=== PATIENT | male | born 1950 ===

== ENCOUNTER 2018-02-13 18:30 | Observation (INO) | payer BC ==
[2018-02-13] MEDS ORDERED: NS 0.9% 1000 ML*IV.FLUID IV ONE (18:53)
[2018-02-13 19:10] LABS: ABS Basophils 0.1 10^3/ul (0-0.2); ABS Eosinophils 0 10^3/ul (0-0.6); ABS Monocytes 0.9 10^3/ul (0-0.8); ABS Neutrophils 10.4 10^3/ul (1.5-7.7); ABS Nucleated RBC 0 10^3/ul; Eosinophil % 0.3 % (0-6); Hematocrit 43 % (42-52); Hemoglobin 14.9 g/dl (14.0-18.0); Mean Corpuscular HGB Conc 35 g/dl (31-36); Mean Corpuscular Hemoglobin 29 pg (27-31); Mean Corpuscular Volume 83 fL (80-94); Mean Platelet Volume 7.8 um3 (7.4-10.4); Nucleated Red Blood Cells % 0; Platelet Count 173 10^3/ul (150-450); Red Blood Count 5.11 10^6/ul (4.00-5.40); Red Cell Distribution Width 13 % (10.5-15); White Blood Count 12.4 10^3/ul (3.5-10.8)
--- NOTE | 2018-02-13 19:18 | RAD ---
INDICATION: Fever COMPARISON: None TECHNIQUE: An AP portable view obtained at 1915 hours is submitted. FINDINGS: Bones/Soft Tissues: There are no acute bony findings. Cardiomediastinal: The cardiomediastinal silhouette is normal. Lungs: There are no infiltrates. Pleura: There are no pleural effusions. Other: None IMPRESSION: NORMAL CHEST
[2018-02-13] MEDS ORDERED: Acetaminophen TAB* 325 MG PO ONE (19:24)
[2018-02-13] MEDS ORDERED: Ketorolac INJ* 30 MG/ML 1 ML VIAL IV PUSH ONE (19:24)
[2018-02-13 19:27] LABS: EGFR Non-African American 38.7 (>60)
[2018-02-13 19:54] LABS: INR 1.02 (0.77-1.02)
[2018-02-13 20:08] LABS: Urine Appearance Clear; Urine Blood Negative (Negative); Urine Color Straw; Urine Ketones Negative (Negative); Urine Protein Negative (Negative); Urine Specific Gravity 1.009 (1.010-1.030); Urine Urobilinogen Negative (Negative)
[2018-02-13] MEDS ORDERED: Gentamicin ADULT (*) 180 MG in NS 0.9% 100 ML* 100 ML IVPB ONE (20:18)
[2018-02-13] MEDS ORDERED: cefTRIAXone(*) 2 GM in NS 0.9% 100 ML* 100 ML IVPB ONE (20:18)
[2018-02-13] MEDS ORDERED: NS 0.9% 100 ML* 0 ML ONE (20:38)
[2018-02-13] MEDS ORDERED: Ondansetron 40 MG VIAL* 2 MG/ML 20 ML VIAL IV PRN (20:40)
[2018-02-13] MEDS ORDERED: Propofol* 10 MG/ML 20 ML BTL IV PUSH ONE (21:28)
[2018-02-13] MEDS ORDERED: Midazolam* 1 MG/ML 5 ML VIAL (5 MG) ONE (21:28)
[2018-02-13] MEDS ORDERED: Lidocaine 2% PF * 5 ML VIAL ONE (21:28)
[2018-02-13] MEDS ORDERED: Dexamethasone IV* 4 MG/ML 1 ML (4 MG) ONE (21:28)
[2018-02-13] MEDS ORDERED: fentaNYL* 50 MCG/ML 2 ML VIAL (100 MCG VIAL) ONE (21:28)
[2018-02-13] MEDS ORDERED: Ondansetron ODT TAB* 4 MG ONE (21:28)
[2018-02-13] MEDS ORDERED: Acetaminophen TAB* 325 MG PO PRN (21:30)
[2018-02-13] MEDS ORDERED: Docusate CAP* 100 MG PO PRN (21:30)
[2018-02-13] MEDS ORDERED: oxyCODONE/Acetamin 5/325 MG* TAB PO PRN (21:30)
[2018-02-13] MEDS ORDERED: Iohexol 180 (CONTRAST) 10 ML SDV IV ONE (21:35)
[2018-02-13] MEDS ORDERED: EPHEDrine (Pressors)* 50 MG/ML VIAL ONE (22:12)
[2018-02-13] MEDS ORDERED: fentaNYL* 50 MCG/ML 2 ML VIAL (100 MCG VIAL) IV PRN (22:39)
[2018-02-13] MEDS ORDERED: Naloxone* 0.4 MG/ML 1 ML VIAL IV PRN (22:39)
[2018-02-13] MEDS ORDERED: Ondansetron INJ* 2 MG/ML VIAL IV PRN (22:39)
--- NOTE | 2018-02-14 00:11 | ED ---
Valdo Jones SooYoung, scribed for Kate Mcgrath MD on 02/13/18 at 1910 . Abdominal Pain/Male - HPI Summary HPI Summary: A 68 y/o M presents to the ED with c/o L flank pain due to known kidney stone onset yesterday afternoon. Pt states the pain radiates and rates it as 5 out of 10. Associated sx: fever, nausea, inability to urinate. Denies cough, SOB, CP. No known UTI. Pt saw his urologist, Dr. Damon, two days ago for a routine check-up. He experienced the onset of new pain yesterday afternoon and went to [facility], where he had a CAT scan, and was told his kidney stone was 6mm and moving. [place] gave him Toradol, Percocet. He last took the Toradol at 1100 yesterday, and has not taken the Percocet today. Pert PMHx: kidney stones (2012). Allergic to cephalexin. Last meal was two pieces of bread this AM. - History of Current Complaint Chief Complaint: EDFlankPain Stated Complaint: LT SIDE PAIN Time Seen by Provider: 02/13/18 19:05 Hx Obtained From: Patient Onset/Duration: Sudden Onset, Lasting Days - 2, Still Present Timing: Intermittent Severity Initially: Moderate Severity Currently: Moderate Pain Intensity: 5 Pain Scale Used: 0-10 Numeric Location: Flank - L Radiates: Yes Character: Other: - aching Associated Signs And Symptoms: Positive: Fever, Urinary Symptoms, Nausea. Negative: Cough, Chest Pain, Other - neg: SOB - Allergies/Home Medications Allergies/Adverse Reactions: Allergies Allergy/AdvReac Type Severity Reaction Status Date / Time cephalexin [From Keflex] Allergy Swelling Verified 02/13/18 18:39 Of Face,Lips,& Throat PMH/Surg Hx/FS Hx/Imm Hx Previously Healthy: No Endocrine/Hematology History: Denies: Hx Anticoagulant Therapy, Hx Diabetes, Hx Thyroid Disease, Hx Anemia , Hx Unexplained Bleeding Cardiovascular History: Reports: Hx Hypertension - "on occassion" Denies: Hx Aneurysm, Hx Angina, Hx Angioplasty, Hx Auto Implanted Cardiovert Defib, Hx Cardiac Arrest, Hx Cardiomegaly, Hx Congenital Heart Disease, Hx Congestive Heart Failure, Hx Coronary Artery Disease, Hx Deep Vein Thrombosis, Hx Embolism, Hx Hypercholesterolemia, Hx Hypotension, Hx Pacemaker/ICD, Hx Peripheral Vascular Disease, Hx Rheumatic Fever, Hx Syncope, Hx Valvular Heart Disease, Other Cardiovascular Problems/Disorders Respiratory History: Reports: Hx Seasonal Allergies - runny nose Denies: Hx Asthma, Hx Chronic Bronchitis, Hx Chronic Obstructive Pulmonary Disease (COPD), Hx Cystic Fibrosis, Hx Lung Cancer, Hx Pleural Effusion, Hx Pneumonia, Hx Pulmonary Edema, Hx Pulmonary Embolism, Hx Sleep Apnea, Other Respiratory Problems/Disorders GI History: Denies: Hx Cirrhosis, Hx Crohn's Disease, Hx Diverticulosis, Hx Gall Bladder Disease, Hx Gastroesophageal Reflux Disease, Hx Gastrointestinal Bleed, Hx Hiatal Hernia, Hx Irritable Bowel, Hx Jaundice, Hx Obstructive Bowel, Hx Ileostomy, Hx Pyloric Stenosis, Hx Ulcer, Other GI Disorders History: Reports: Hx Kidney Stones - still has one., Other Problems/ Disorders - HX KIDNEY STONES Denies: Hx Acute Renal Failure, Hx Benign Prostatic Hyperplasia, Hx Chronic Renal Failure, Hx Dialysis, Hx Kidney Infection, Hx Renal Disease Musculoskeletal History: Denies: Hx Arthritis, Hx Back Problems, Hx Bursitis, Hx Congenital Bone Abnormalities, Hx Fibromyalgia, Hx Gout, Hx Orthopedic Injury, Hx Osteoporosis, Hx Scoliosis, Hx Tendonitis, Other Musculoskeletal History Sensory History: Reports: Hx Contacts or Glasses Denies: Hx Cataracts, Hx Eye Injury, Hx Eye Prosthesis, Hx Glaucoma, Hx Legally Blind, Hx Macular Degeneration, Hx Vision Problem, Hx Deafness, Hx Hearing Aid, Hx Hearing Problem, Other Sensory Impairments Opthamlomology History: Reports: Hx Contacts or Glasses Denies: Hx Cataracts, Hx Eye Injury, Hx Eye Prosthesis, Hx Glaucoma, Hx Legally Blind, Hx Macular Degeneration, Hx Vision Problem, Other Sensory Impairments Neurological History: Reports: Hx Migraine - visual. Not on a regular basis Denies: Hx Dementia, Hx Seizures Psychiatric History: Reports: Hx Anxiety - in 2001 Denies: Hx Attention Deficit Hyperactivity Disorder, Hx Eating Disorder, Hx Depression, Hx Panic Disorder, Hx Post Traumatic Stress Disorder, Hx Inpatient Treatment, Hx Community Mental Health Tx, Hx Schizophrenia, Hx Bipolar Disorder , Hx Suicide Attempt, Hx of Violent Episodes Against Others, Hx Substance Abuse , Other Psychiatric Issues/Disorders - Surgical History Surgery Procedure, Year, and Place: RIGHT HAND SURGERY. LEFT KIDNEY STONE EXTRACTION - Immunization History Date of Tetanus Vaccine: unknown Infectious Disease History: No Infectious Disease History: Denies: Hx Hepatitis, Hx Human Immunodeficiency Virus (HIV), Hx Tuberculosis , Traveled Outside the [place] in Last 30 Days - Family History Known Family History: Positive: Other - mother - PE; father - Parkinson's, Alz - Social History Occupation: Unemployed - OTHER Lives: With Family Alcohol Use: None Substance Use Type: Reports: None Smoking Status (MU): Former Smoker Review of Systems Positive: Fever Negative: Chest Pain Negative: Shortness Of Breath, Cough Positive: Nausea Positive: dysuria - inability to urinate, flank pain - L All Other Systems Reviewed And Are Negative: Yes Physical Exam - Summary Physical Exam Summary: GENERAL: Patient is a well-developed and nourished M who is lying comfortable in the stretcher. Patient is not in any acute respiratory distress. HEAD AND FACE: Normocephalic EYES: PERRLA, EOMI x 2. EARS: Hearing grossly intact. MOUTH: Oropharynx within normal limits. NECK: Supple, trachea is midline, no adenopathy, no JVD, no carotid bruit. CHEST: Symmetric, no tenderness at palpation LUNGS: Clear to auscultation bilaterally. No wheezing or crackles. CVS: Regular rate and rhythm, S1 and S2 present, no murmurs or gallops appreciated. ABDOMEN: Soft. Bowel sounds are normal. No abdominal abnormal pulsations. Mild L -sided CVA tenderness. EXTREMITIES: Full ROM in all major joints, no edema, no cyanosis or clubbing. NEURO: Alert and oriented x 3. No acute neurological deficits. Speech is normal and follows commands. SKIN: Dry and warm Triage Information Reviewed: Yes Vital Signs On Initial Exam: Initial Vitals Temp Pulse Resp BP Pulse Ox 102.4 F 106 20 140/84 100 02/13/18 18:33 02/13/18 18:33 02/13/18 18:33 02/13/18 18:33 02/13/18 18:33 Vital Signs Reviewed: Yes Diagnostics - Vital Signs Vital Signs Temp Pulse Resp BP Pulse Ox 02/13/18 18:33 102.4 F 106 20 140/84 100 - Laboratory Lab Results: Lab Results 02/13/18 02/13/18 02/13/18 Range/Units 19:01 19:01 19:01 WBC 12.4 H (3.5-10.8) 10^3/ul RBC 5.11 (4.00-5.40) 10^6/ul Hgb 14.9 (14.0-18.0) g/dl Hct 43 (42-52) % MCV 83 (80-94) fL MCH 29 (27-31) pg MCHC 35 (31-36) g/dl RDW 13 (10.5-15) % Plt Count 173 (150-450) 10^3/ul MPV 7.8 (7.4-10.4) um3 Neut % (Auto) 83.7 H (38-83) % Lymph % (Auto) 8.0 L (25-47) % [place] % (Auto) 7.6 H (0-7) % Eos % (Auto) 0.3 (0-6) % Baso % (Auto) 0.4 (0-2) % Absolute Neuts (auto) 10.4 H (1.5-7.7) 10^3/ul Absolute Lymphs (auto) 1.0 (1.0-4.8) 10^3/ul Absolute Monos (auto) 0.9 H (0-0.8) 10^3/ul Absolute Eos (auto) 0 (0-0.6) 10^3/ul Absolute Basos (auto) 0.1 (0-0.2) 10^3/ul Absolute Nucleated RBC 0 10^3/ul Nucleated RBC % 0 INR (Anticoag Therapy) 1.02 (0.77-1.02) APTT 28.8 (26.0-36.3) seconds Sodium 136 (135-145) mmol/L Potassium 4.1 (3.5-5.0) mmol/L Chloride 102 (101-111) mmol/L Carbon Dioxide 23 (22-32) mmol/L Anion Gap 11 (2-11) mmol/L BUN 23 (6-24) mg/dL Creatinine 1.77 H (0.67-1.17) mg/dL Est GFR ( Amer) 46.8 (>60) Est GFR (Non-Af Amer) 38.7 (>60) BUN/Creatinine Ratio 13.0 (8-20) Glucose 108 H (70-100) mg/dL Lactic Acid (0.5-2.0) mmol/L Calcium 9.2 (8.6-10.3) mg/dL Total Bilirubin 1.20 H (0.2-1.0) mg/dL AST 19 (13-39) U/L ALT 18 (7-52) U/L Alkaline Phosphatase 61 (34-104) U/L Troponin I 0.00 (<0.04) ng/mL C-Reactive Protein 44.07 H (<8.01) mg/L B-Natriuretic Peptide ( - 100) pg/mL Total Protein 6.4 (6.4-8.9) g/dL Albumin 4.3 (3.2-5.2) g/dL Globulin 2.1 (2-4) g/dL Albumin/Globulin Ratio 2.0 (1-3) Lipase 100 H (11.0-82.0) U/L Urine Color Urine Appearance Urine pH (5-9) Ur Specific [place] (1.010-1.030) Urine Protein (Negative) Urine Ketones (Negative) Urine Blood (Negative) Urine Nitrate (Negative) Urine Bilirubin (Negative) Urine Urobilinogen (Negative) Ur Leukocyte Esterase (Negative) Urine Glucose (Negative) 02/13/18 02/13/18 02/13/18 Range/Units 19:01 19:01 19:50 WBC (3.5-10.8) 10^3/ul RBC (4.00-5.40) 10^6/ul Hgb (14.0-18.0) g/dl Hct (42-52) % MCV (80-94) fL MCH (27-31) pg MCHC (31-36) g/dl RDW (10.5-15) % Plt Count (150-450) 10^3/ul MPV (7.4-10.4) um3 Neut % (Auto) (38-83) % Lymph % (Auto) (25-47) % [place] % (Auto) (0-7) % Eos % (Auto) (0-6) % Baso % (Auto) (0-2) % Absolute Neuts (auto) (1.5-7.7) 10^3/ul Absolute Lymphs (auto) (1.0-4.8) 10^3/ul Absolute Monos (auto) (0-0.8) 10^3/ul Absolute Eos (auto) (0-0.6) 10^3/ul Absolute Basos (auto) (0-0.2) 10^3/ul Absolute Nucleated RBC 10^3/ul Nucleated RBC % INR (Anticoag Therapy) (0.77-1.02) APTT (26.0-36.3) seconds Sodium (135-145) mmol/L Potassium (3.5-5.0) mmol/L Chloride (101-111) mmol/L Carbon Dioxide (22-32) mmol/L Anion Gap (2-11) mmol/L BUN (6-24) mg/dL Creatinine (0.67-1.17) mg/dL Est GFR ( Amer) (>60) Est GFR (Non-Af Amer) (>60) BUN/Creatinine Ratio (8-20) Glucose (70-100) mg/dL Lactic Acid 1.3 (0.5-2.0) mmol/L Calcium (8.6-10.3) mg/dL Total Bilirubin (0.2-1.0) mg/dL AST (13-39) U/L ALT (7-52) U/L Alkaline Phosphatase (34-104) U/L Troponin I (<0.04) ng/mL C-Reactive Protein (<8.01) mg/L B-Natriuretic Peptide 35 ( - 100) pg/mL Total Protein (6.4-8.9) g/dL Albumin (3.2-5.2) g/dL Globulin (2-4) g/dL Albumin/Globulin Ratio (1-3) Lipase (11.0-82.0) U/L Urine Color Straw Urine Appearance Clear Urine pH 5.0 (5-9) Ur Specific [place] 1.009 L (1.010-1.030) Urine Protein Negative (Negative) Urine Ketones Negative (Negative) Urine Blood Negative (Negative) Urine Nitrate Negative (Negative) Urine Bilirubin Negative (Negative) Urine Urobilinogen Negative (Negative) Ur Leukocyte Esterase Negative (Negative) Urine Glucose Negative (Negative) Result Diagrams: 02/13/18 19:01 02/13/18 19:01 Lab Statement: Any lab studies that have been ordered have been reviewed, and results considered in the medical decision making process. - Radiology CXR Xray Interpretation: No Acute Changes - IMPRESSION: Nml chest XR. ED physician has reviewed this report and agrees. Radiology Interpretation Completed By: Radiologist - EKG 1940 Cardiac Rate: Tachycardia - 132 bpm EKG Rhythm: Sinus Tachycardia EKG Interpretation: Q waves in inferior leads - Additional Comments Diagnostic Additional Comments: A/P CT from [facility] on 02/12/2018, read by Dr. Collier: Impression: "6mm calculus positioned in the L ureteral pelvic junction/proximal ureter with moderate hydronephrosis and some periureteral edema changes. This stone was previously seen in the lower pole the left kidney. No other calculi identified. Distal ureter normal in caliber. The other abd viscera are unremarkable." Re-Evaluation - Re-Evaluation 1 Re-Evaluation Time: 19:44 Change: Unchanged Comment: Discussing review of [place] [facility] with pt. Pt wants to contact Dr. Damon. 2 Re-Evaluation Time: 19:53 Change: Unchanged Comment: Discussing consult with Dr. Ybarra. Pt voiced understanding. 3 Re-Evaluation Time: 20:35 Change: Improved Comment: Discussing plans with pt for Dr. Ybarra to take him to OR. Pt voiced understanding. Abdominal Pain Fem Course/Dx - Course Course Of Treatment: A 68 y/o M who has dx: kidney stone and now presents with fever, concerns for infected stone. Received [facility] CT scan which confirmed an obstructing stone on L side. Pt started on sepsis pathway and given 30 ccs nml saline, 30mg Toradol, and covered broadly with IV Abx: Ceftriaxone and Gentamicin. Pt did call his urologist and I spoke to Dr. Ybarra, who will take pt to OR for stent. Discussed case with Dr. Osborne, hospitalist, who will admit pt. Pt is hemodynamically stable, and agrees to admission. Discussed results and plan of care with pt, who voiced understanding. - Diagnoses Differential Diagnosis/HQI/PQRI: Renal Colic Provider Diagnoses: Kidney stone - Provider Notifications Discussed Care Of Patient With: Von Ybarra - Urology Time Discussed With Above Provider: 19:51 Instructed by Provider To: Other - Recommends rechecking temperature after medication - Critical Care Time Critical Care Time: 30-74 min Discharge - Sign-Out/Discharge Documenting (check all that apply): Discharge/Admit/Transfer - admit - Discharge Plan Condition: Stable Disposition: ADMITTED TO [facility] - Billing Disposition and Condition Condition: STABLE Disposition: Admitted to [facility] Consult Consult: Consult with Dr. Ybarra, urology, at 2015: Reviewing vitals. Recommends admit, but will call hospitalist to see if he needs to come in tonight or tomorrow. Consult with Dr. Osborne, hospitalist, at 2019: Discussing Dr. Ybarra's recommendation to admit. Will accept pt. Consult with Dr. Ybarra, at 2033: Will come in tonight and take pt to OR. Consult with Dr. Osborne, at 2033: Confirmed plans. The documentation as recorded by the Valdo kirk SooYoung accurately reflects the service I personally performed and the decisions made by , Kate Mcgrath MD.
--- NOTE | 2018-02-14 01:05 | HP ---
CC: Dr. Ritchie; Dr. Ybarra * ADMISSION HISTORY AND PHYSICAL: DATE OF ADMISSION: 02/13/18 CHIEF COMPLAINT: Flank pain. HISTORY OF PRESENT ILLNESS: Mr. Almeida is a 68-year-old man who is in good health but has history of nephrolithiasis. He came to the emergency department of [facility] this evening complaining of lower abdominal pain and flank pain that is worsening since yesterday. The patient was at [facility] on 02/12/18 with groin pain and flank pain. At that point, he had a CT that showed a 6 mm stone in the left ureteropelvic junction. He was discharged home on Vicodin for pain and advised to stay hydrated, but he felt he could not manage the pain at home and came to the emergency room tonight. The patient has no history of heart disease. He does heavy exercises without any chest pain, but he does experience some shortness of breath when he is climbing hills or stairs but does not really limit him. Denies any history of ME. The patient's medical history mainly for nephrolithiasis. He also has borderline hypertension with blood pressures in the 140s/80 range. The patient had another renal stone extracted in [address] Damon and he saw Dr. Damon 2 days ago for routine visit, which included an ultrasound that showed a left kidney stone that was not in UPJ at that point according to what the patient understood. PAST SURGICAL HISTORY: Right hand surgery in the past and left kidney stone extraction. MEDICATIONS: On admission is Vicodin p.r.n. ALLERGIES: Possibly to KEFLEX. FAMILY HISTORY: Notable for mother at age 89 of pulmonary embolism. Father at 79 of Alzheimer's. SOCIAL HISTORY: He is retired from [employer]. He never smoked. Drinks no alcohol. No recreational drugs. He is . He has no children. REVIEW OF SYSTEMS: The patient had a fever at home, but he did not measure it and he had some anorexia. The patient denies any chest pain or palpitations. The patient denies any shortness of breath or cough. The patient has had no diarrhea, but he has had some nausea and abdominal pain. He has had no bowel movement since . Yesterday he has had nausea since using Vicodin. The patient denies any hematuria or dysuria. Remainder of a 14-point review of systems was negative other than mentioned in the HPI. PHYSICAL EXAMINATION GENERAL: He is alert, in no acute distress. VITAL SIGNS: Temperature is 38.2, up to 39.1; the pulse is 89; respirations 19 ; blood pressure is 138/96; O2 sat is 94%. HEENT: Head is normocephalic, atraumatic. Sclerae anicteric. Pupils equally round, reactive to light and accommodation. Oropharynx is moist. No lesions. NECK: No JVD, no carotid bruits, no thyromegaly. LUNGS: Clear to auscultation and percussion bilaterally. HEART: Regular rate and rhythm without murmurs or gallops. ABDOMEN: Soft. There is some mild tenderness in the suprapubic region. Positive bowel sounds. There is left CVA tenderness. No masses are palpated. EXTREMITIES: No peripheral edema. Dorsalis pedis pulses 2+ bilaterally. NEUROLOGIC: Cranial nerves II through XII are intact. Motor strength is 5/5 throughout. Deep tendon reflexes are symmetric. DIAGNOSTIC STUDIES/LAB DATA: Sodium 136, potassium 4.1, chloride 102, bicarb 23, BUN 23, creatinine 1.77, glucose 108. Troponin 0.00. Lactic acid 1.3. Lipase 100. CRP 44.0. BNP 35. White count is 12.4, hemoglobin 14.9, hematocrit 43%, platelets are 173. INR of 1.02, PTT 28.8. EKG shows sinus tachycardia, left axis deviation, and inferior Q waves that are new compared with an EKG of 02/21/13. Chest x-ray is negative. ASSESSMENT AND PLAN: 1. Infected renal stone with sepsis, organism likely Escherichia coli or klebsiella. The patient has received a dose of gentamicin and ceftriaxone in the emergency room. We need to obtain SIRS control of this infection by consultation with Urology and taking him to the operating room for placement of stent and possible extraction of the stone to allow drainage of the infection from the left ureter. 2. The patient also has acute kidney disease with creatinine above baseline, likely only has one kidney, the right kidney functioning, infiltrated at this time. This should improve with the clearance of obstruction. He will be hydrated with crystalloids. He has already had his 30 mL/kg infusion in the ER. Continue the lactated Ringers while he is upstairs. Recheck in the morning. The patient has new Q waves in the EKG. No symptoms of coronary artery disease at this time. The patient should proceed to the operating room without delay given the risk of delay, worsening sepsis, and the low risk of cardiopulmonary complications from this procedure. 2. Code status is full. 3. DVT prophylaxis: He is at high risk given his family history and his age; he should have compression devices now and Lovenox 24 hours after surgery. [id number]/[facility] #: [id number] MISHA
--- NOTE | 2018-02-14 01:13 | OP ---
CC: Dr. Mike Ritchie * DATE OF OPERATION: 02/13/18 - ROOM #341 DATE OF : 54 SURGEON: Dr. Von Ybarra. ANESTHESIOLOGIST: Dr. Salazar. ANESTHESIA: General. PRE-OP DIAGNOSES: 1. Obstructing calculus, left proximal ureter. 2. Urosepsis. POST-OP DIAGNOSIS: 1. Obstructing calculus, left proximal ureter. 2. Urosepsis. OPERATIVE PROCEDURE: Cystoscopy, left retrograde pyelogram, left ureteral calculus manipulation, and left stent insertion. COMPLICATIONS: None. STENT USED: 6-[place] stent, left ureter. POSTOPERATIVE CONDITION: Stable. INDICATIONS: Randal Almeida is a 68-year-old gentleman who had previously been at [facility]. A CT scan had revealed a 6 mm calculus in the proximal left ureter. He was being managed conservatively, but presented to the emergency room with temperature of 39.1 and was noted to be tachycardic and is being brought in for urgent left stent insertion. Because of the presence of infection, I am not planning to remove or break up the calculus at the present time, but to place a stent and then to bring him back as an outpatient a week or so later for lithotripsy. OPERATIVE FINDINGS: 1. Mildly enlarged (predominantly medial lobe) prostate. 2. Obstructing calculus, left proximal ureter. DESCRIPTION OF PROCEDURE: After induction of general anesthesia, the patient was placed in dorsal lithotomy position. Sequential compression devices were in place and functioning. Initial cystoscopy revealed a normal-appearing urethra. There was mild enlargement of the median lobe of the prostate with some increased vascularity noted on the surface of the median lobe. The bladder was examined and was unremarkable. A guidewire was introduced into the left ureter. Retrograde pyelogram was carried out in a limited fashion because of the possible infection and revealed mild fullness of the left collecting system. The calculus could be visualized in the proximal ureter and was carefully manipulated more proximally to facilitate placement of the stent. A 6 -[place] stent was then introduced and positioned under fluoroscopy with good proximal and distal positioning obtained. The proximal coil was slightly uncoiled at the end of the procedure, but appeared to be draining adequately. The patient tolerated the procedure satisfactorily and was transferred back to the recovery area in stable condition. The plan is to bring him back some time in the next 7 to 10 days for lithotripsy. [id number]/[facility] #: [id number] [facility]OSPITALJohn
[2018-02-14 06:13] LABS: ABS Basophils 0 10^3/ul (0-0.2); ABS Eosinophils 0 10^3/ul (0-0.6); ABS Lymphocytes 0.7 10^3/ul (1.0-4.8); ABS Monocytes 0.2 10^3/ul (0-0.8); ABS Neutrophils 7.5 10^3/ul (1.5-7.7); ABS Nucleated RBC 0 10^3/ul; Eosinophil % 0 % (0-6); Hematocrit 41 % (42-52); Lymphocyte % 8.6 % (25-47); Mean Corpuscular HGB Conc 34 g/dl (31-36); Mean Corpuscular Hemoglobin 29 pg (27-31); Mean Corpuscular Volume 85 fL (80-94); Mean Platelet Volume 8.3 um3 (7.4-10.4); Nucleated Red Blood Cells % 0; Platelet Count 158 10^3/ul (150-450); Red Blood Count 4.81 10^6/ul (4.00-5.40); Red Cell Distribution Width 14 % (10.5-15); White Blood Count 8.4 10^3/ul (3.5-10.8)
[2018-02-14 06:25] LABS: EGFR Non-African American 57.8 (>60)
--- NOTE | 2018-02-14 06:50 | RAD ---
INDICATION: Left renal stent placement COMPARISON: None FINDINGS: 17 seconds of fluoroscopy were provided for the urology department. Fluoroscopic spot imaging of the abdomen were obtained for operative control and show left ureteral stent placement . There is mild uncoiling of the proximal aspect of the stent. The distal aspect projects over the bladder CPT II Codes: G9500 (fluoro time doc)
[2018-02-14] MEDS ORDERED: Tamsulosin CAP* 0.4 MG PO SCH (09:00)
[2018-02-14] MEDS ORDERED: Magnesium CITRATE* 300 ML BTL PO ONE (09:00)
[2018-02-14] MEDS ORDERED: Gentamicin ADULT (*) 160 MG in NS 0.9% 100 ML* 100 ML IVPB ONE (10:00)
[2018-02-14 11:55] VITALS: BP 124/77
--- NOTE | 2018-02-14 12:07 | PN ---
Subjective Date of Service: 02/14/18 Interval History: Patient seen and examined at bedside. Denies fever, chills, shortness of breath , chest discomfort, N/V/D. Pt states that he has some discomfort with urination since the stent was placed last night. Pt states that he feels well and is anxious to go home today. Tele: Sinus rhythm, rate 70-90's Family History: Unchanged from Admission Social History: Unchanged from Admission Past Medical History: Unchanged from Admission Objective Active Medications: Acetaminophen (Tylenol Tab*) 650 mg PO Q6H PRN Reason: TEMP > 101 Docusate Sodium (Colace Cap*) 100 mg PO BID PRN Reason: CONSTIPATION Enoxaparin Sodium (Lovenox(*)) 40 mg SUBCUT Q24H MANOJ Lactated Ringer's (Lactated Ringers 1000 Ml Bag*) 1,000 mls @ 125 mls/hr IV PER RATE MANOJ Ceftriaxone Sodium 1 gm/ (Sodium Chloride) 50 mls @ 200 mls/hr IVPB Q24H MANOJ Ondansetron HCl (Zofran 40 Mg Vial*) 4 mg IV Q6H PRN Reason: NAUSEA Oxycodone/Acetaminophen (Percocet 5/325 Tab*) 2 tab PO Q4H PRN Reason: PAIN Tamsulosin HCl (Flomax Cap*) 0.4 mg PO DAILY [facility] Vital Signs - 8 hr 02/14/18 02/14/18 02/14/18 07:23 08:00 08:51 Temperature 97.9 F Pulse Rate 75 Respiratory 20 16 Rate Blood Pressure 121/67 (mmHg) O2 Sat by Pulse 98 96 96 Oximetry 02/14/18 02/14/18 09:44 11:30 Temperature 97.9 F 97.9 F Pulse Rate 80 91 Respiratory 16 16 Rate Blood Pressure 112/64 124/77 (mmHg) O2 Sat by Pulse 97 95 Oximetry Oxygen Devices in Use Now: None Appearance: NAD, laying in bed Ears/Nose/Mouth/Throat: Mucous Membranes Moist Respiratory: Symmetrical Chest Expansion and Respiratory Effort, Clear to Auscultation Cardiovascular: NL Sounds; No Murmurs; No JVD, RRR Abdominal: NL Sounds; No Tenderness; No Distention Extremities: No Edema Skin: No Rash or Ulcers Neurological: Alert and Oriented x 3, NL Muscle Strength and Tone Lines/Tubes/Other Access: Clean, Dry and Intact Peripheral IV - site benign Nutrition: Taking PO's Result Diagrams: 02/14/18 05:25 02/14/18 05:25 Additional Lab and Data: . Assess/Plan/Problems-Billing Assessment: Mr. Almeida is a 68 yo male with PMH significant for - Patient Problems (1) Renal calculi Code(s): N20.0 - CALCULUS OF KIDNEY SNOMED Code(s): 50568584 Comment: - With associated sepsis on admission as evidenced by fever, tachycardia, tachypnea and leukocytosis - S/P cysto and stent with Dr. Ybarra, POD # 1 - Sepsis resolved as evidenced by afbrile, no tachycardia or tachypnea and no leukocytosis - Will give a dose of ceftriaxone prior to discharge, then plan for Bactrim at discharge (2) ILYA (acute kidney injury) Code(s): N17.9 - ACUTE KIDNEY FAILURE, UNSPECIFIED SNOMED Code(s): 13961025 Comment: - Improving with IVFs and s/p cysto and stent - Suspect secondary to dehydration and renal calculi (3) DVT prophylaxis Code(s): EDN9835 - SNOMED Code(s): 533841953 Comment: - SCD's (4) Full code status Code(s): Z78.9 - OTHER SPECIFIED HEALTH STATUS SNOMED Code(s): 062063857 Status and Disposition: Inpatient to [facility]. Stable for discharge to home today.
[2018-02-14] MEDS ORDERED: cefTRIAXone(*) 1 GM in NS 0.9% 50 ML* 50 ML IVPB SCH (18:00)
[2018-02-14] MEDS ORDERED: Enoxaparin(*) 40 MG/0.4 ML SYR SUBCUT SCH (21:00)
--- NOTE | 2018-02-14 23:06 | DS ---
CC: Dr. Mike Ritchie; Dr. Von Ybarra * DISCHARGE SUMMARY: DATE OF ADMISSION: 02/13/18 DATE OF DISCHARGE: 02/14/18 ATTENDING PHYSICIAN: Dr. Jp Gomez * (dictated by Jakub Wilkins NP). PRIMARY CARE PROVIDER: Dr. Mike Ritchie. PRIMARY UROLOGIST: Dr. Damion Damon. PRIMARY DIAGNOSES: 1. Urosepsis. 2. Left renal calculi. 3. Acute kidney injury. 4. Mildly enlarged prostate. CONSULTATIONS WHILE IN THE HOSPITAL: Dr. Von Ybarra with Urology. PROCEDURES WHILE IN THE HOSPITAL: Status post cystoscopy and left stent insertion by Dr. Von Ybarra on 02/13/18. DISCHARGE MEDICATIONS: New home medication: 1. Bactrim DS 1 tab oral twice daily for 14 days. 2. Tamsulosin 0.4 mg oral daily at bedtime. 3. Percocet 5/325 one to two tablets oral every 6 hours as needed for significant pain. HISTORY OF PRESENT ILLNESS/HOSPITAL COURSE: Mr. Almeida is a 68-year-old male with no significant past medical history other than nephrolysis, who presented to the [facility] Emergency Room with complaints of lower abdominal pain and left flank pain that had worsened. The patient went to [facility] on 02/12/18 with groin pain and flank pain. At that point, he had a CT scan showing a 6 mm stone at his left ureteropelvic junction. He was discharged home with Vicodin and advised to stay hydrated, but the patient felt as though he could no longer manage the pain at home and came to the emergency room. He also reports that he had tried the Vicodin, but felt as though it caused GI upset. The patient had another renal stone extracted in [address] Damon and saw Dr. Damon on approximately 2 days prior to his presentation with an ultrasound that showed a left kidney stone that was not in the UPJ at that point according to the patient's understanding. While in the emergency room, the patient had an EKG showing new inferior Q- waves when compared to prior EKG from 2013. He had labs showing leukocytosis with a white blood cell count of 12.4, acute kidney injury with a creatinine of 1.77, CRP 44. His other labs were unremarkable. He was febrile with a temperature up to 102.4. Hospitalists were asked to evaluate the patient for admission. During the patient's hospitalization, he was ultimately taken to the operating room by Dr. Ybarra, who did a cystoscopy and placed a left ureteral stent yesterday on 02/13/18. This morning, the patient's leukocytosis has resolved. He is no longer meeting sepsis criteria. His initial urinalysis was unremarkable. He received dose of ceftriaxone today prior to his discharge. I discussed the patient with Dr. Ybarra, who felt that he was able to go home today as long as he was continued on Bactrim. During the patient's stay, he received IV hydration that improved his acute kidney injury. Mr. Almeida is stable for discharge to home today. Vital signs are as follows : Temperature 97.9, heart rate 91, respiratory rate 16, O2 sat 95% on room air, blood pressure 124/77. DISCHARGE PLAN: Mr. Almeida will be discharged to home. Activity as tolerated. In regards to his urosepsis and left renal calculi, he has been continued on Bactrim DS 1 tablet oral twice daily for 14 days. I will defer to Dr. Damon or Dr. Ybarra if they would like a shorter period of treatment for antibiotics. The patient was also found to have mildly enlarged prostate and was placed on Flomax daily at bedtime. The patient has been encouraged to drink plenty of fluids to flush his kidneys. He has been asked to call Dr. Ybarra's office to setup a followup appointment for this week tomorrow morning. He has also been asked to call Dr. Ritchie' office for followup appointment in the next week. For pain, the patient has been ordered Percocet 1 or 2 tablets oral every 6 hours as needed for significant pain, or he can take acetaminophen. He has been asked to not take more than 4 g of Tylenol in 24 hours. I did check his I-STOP with reference #[id number]. The patient has been asked to return to the emergency room for any chest pain or shortness of breath. Points for followup. Please ensure to continue to follow in the event that the patient reflexed the urine culture and it comes back so that we can ensure that his antibiotics are correct. This is a summarized report of a complex medical history and hospital stay. For further details, please see the entire medical record. TIME SPENT: Time for this discharge was approximately 50 minutes; greater than half of that was spent with the patient discussing discharge plans and instructions. CONDITION ON DISCHARGE: Stable. JAKUB ENCINAS NP [id number]/[facility] #: [id number] MISHA
== END 2018-02-14 14:30 | disposition home or self-care (01) ==
LOC: ED 18:30 → OR 20:58 → INTOOBSV 23:44 → SSU 23:44
PROVIDERS: ADMIT Internal Medicine; ATTEND Internal Medicine
PROC: BT1FZZZ Fluoroscopy of Left Kidney, Ureter and Bladder (ICD-10-PCS; 2018-02-13)
PROC: 0T778DZ Dilation of Left Ureter with Intraluminal Device, Via Natural or Artificial Opening Endoscopic (ICD-10-PCS; principal; 2018-02-13 22:00)
DX: N13.6 Pyonephrosis (principal); N17.9 Acute kidney failure, unspecified; N40.0 Benign prostatic hyperplasia without lower urinary tract symptoms; Z88.1 Allergy status to other antibiotic agents; Z79.899 Other long term (current) drug therapy; Z87.442 Personal history of urinary calculi; I10 Essential (primary) hypertension; Z87.891 Personal history of nicotine dependence; R06.02 Shortness of breath; R94.31 Abnormal electrocardiogram [ECG] [EKG]
CPT/HCPCS: 36415; 71045; 74420; 80048; 80053; 81003; 83605; 83690; 83880; 84484; 85025; 85610; 85730; 86140; 87040; 93005; 99284; A9270-GY; C1876; G0378; J0696; J1100; J1580; J1885; J2250; J2704; J3010

== ENCOUNTER 2018-02-22 08:54 | Day surgery (SDC) | payer MEDICARE, BC ==
[~2018-02-22 08:54] MED LIST: Buffered Lidocaine 0.9% SYRIN* 5 ML/SYR SYRINGE INTRADERM ONE; Ondansetron INJ* 2 MG/ML VIAL IV ONE
[2018-02-22] MEDS ORDERED: Ondansetron INJ* 2 MG/ML VIAL ONE (09:12)
[2018-02-22] MEDS ORDERED: Levofloxacin 500 MG IVPREMIX(* 500 MG/100 ML BAG IVPB ONE (09:12)
--- NOTE | 2018-02-22 09:34 | RAD ---
HISTORY: shockwave lithotripsy COMPARISONS: February 16, 2018 VIEWS: Frontal views of the abdomen. FINDINGS: BOWEL: There is a nonspecific bowel gas pattern, with nondilated small bowel gas noted. CALCULI: There is a 0.6 cm calculus overlying the lower pole of the left renal parenchymal shadow. A left ureteral stent is noted. BONES AND SOFT TISSUES: Degenerative changes are noted. OTHER FINDINGS: The lung bases are clear. There is no subphrenic gas. IMPRESSION: LEFT NEPHROLITHIASIS WITH A LEFT URETERAL STENT
[2018-02-22] MEDS ORDERED: Lidocaine 2% PF * 5 ML VIAL ONE (10:51)
[2018-02-22] MEDS ORDERED: Phenylephrine INJ* 10 MG/ML 1 ML VIAL (10 MG) ONE (10:51)
[2018-02-22] MEDS ORDERED: Propofol* 10 MG/ML 20 ML BTL IV PUSH ONE ×2 (10:51→14:02)
[2018-02-22] MEDS ORDERED: fentaNYL* 50 MCG/ML 2 ML VIAL (100 MCG VIAL) ONE (11:19)
[2018-02-22] MEDS ORDERED: Furosemide IV* 10 MG/ML 2 ML VIAL (20 MG) ONE ×2 (11:30→14:08)
[2018-02-22] MEDS ORDERED: Dexamethasone IV* 4 MG/ML 1 ML (4 MG) ONE (11:40)
[2018-02-22] MEDS ORDERED: Metoclopramide IV* 5 MG/ML 2 ML VIAL ONE (11:40)
[2018-02-22] MEDS ORDERED: Naloxone* 0.4 MG/ML 1 ML VIAL IV PRN (12:15)
[2018-02-22] MEDS ORDERED: fentaNYL* 50 MCG/ML 2 ML VIAL (100 MCG VIAL) IV PRN (12:15)
[2018-02-22] MEDS ORDERED: Ondansetron INJ* 2 MG/ML VIAL IV PRN (12:15)
[2018-02-22] MEDS ORDERED: Acetaminophen TAB* 325 MG PO PRN (12:15)
[2018-02-22 13:49] VITALS: BP 122/75
--- NOTE | 2018-02-22 20:39 | OP ---
CC: Dr. Mike Ritchie * DATE OF OPERATION: 02/22/18 - [facility] DATE OF : 54. SURGEON: Von Ybarra MD. ANESTHESIOLOGIST: Dr. Marcos. ANESTHESIA: General. PRE-OP DIAGNOSIS: Left renal calculus. POST-OP DIAGNOSIS: Left renal calculus. OPERATIVE PROCEDURE: 1. Shock wave lithotripsy of left renal calculus. 2. Cystoscopy and left stent removal. INDICATIONS: Randal Almeida is a 68-year-old gentleman who had undergone urgent left stent insertion for an obstructing calculus in the proximal ureter. He is now being brought in for lithotripsy. COMPLICATIONS: None. POSTOPERATIVE CONDITION: Stable. DESCRIPTION OF PROCEDURE: After induction of general anesthesia, the patient was placed on the lithotripsy table in supine position. The calculus which was now in the lower pole of the left kidney was localized using fluoroscopy. Shockwave lithotripsy was commenced at the rate of 60 shocks per minute. After the initial 300 shocks, there was a pause in lithotripsy for several minutes in an effort to minimize any potential trauma to the kidney. Lithotripsy was then resumed. Periodic imaging revealed good localization and a total of 2400 shocks were delivered. I was not able to assess how well the stone had fragmented because I did not see too much change in the appearance of the calculus and it may take delayed imaging to better assess the final degree of fragmentation. Next, the patient was placed in dorsal lithotomy position. Cystoscopy was performed. The stet was seen exiting from the left ureter and was removed intact without difficulty. The bladder was emptied. The patient tolerated the procedure satisfactorily and was transferred back tot recovery area in stable condition. [id number]/[facility] #: [id number] [facility]
--- NOTE | 2018-02-23 11:05 | RAD ---
HISTORY: POST OP KUB POST ESWL COMPARISONS: February 22, 2018 at 9:23 AM VIEWS: Frontal views of the abdomen. FINDINGS: BOWEL: There is a nonspecific bowel gas pattern, with nondilated small bowel gas noted. CALCULI: There is a 0.6 and a calculus overlying the lower pole of the left renal parenchymal shadow. There is been interval removal of a left ureteral stent. BONES AND SOFT TISSUES: Degenerative changes are noted. OTHER FINDINGS: The lung bases are clear. There is no subphrenic gas. IMPRESSION: LEFT NEPHROLITHIASIS
== END 2018-02-22 14:08 | disposition home or self-care (01) ==
LOC: OR 08:54
PROVIDERS: ATTEND Urology
DX: N20.0 Calculus of kidney (principal); Z87.442 Personal history of urinary calculi; Z85.828 Personal history of other malignant neoplasm of skin
CPT/HCPCS: 74018; J1100; J1940; J1956; J2405; J2704; J2765; J3010